=== PATIENT | male | born 1985 | race African-American/Black ===

== ENCOUNTER 2016-08-26 19:27 | Emergency (ER) | payer OTHER ==
[~2016-08-26] VITALS: Ht 193 cm; Wt 136.1 kg
[2016-08-26] MEDS ORDERED: FLEXERIL PO (20:10)
[2016-08-26] MEDS ORDERED: TORADOL 10 MG T10 MG PO (20:10)
[2016-08-26 21:07] VITALS: BP 143/93
[2016-08-26] MEDS ORDERED: NORCO 5-325 TA1 EACH PO (21:09)
== END 2016-08-26 21:11 | disposition home or self-care (01) ==
LOC: ER 19:27
DX: M25.512 Pain in left shoulder (principal)